=== PATIENT | female | born 1950 ===

== ENCOUNTER 2024-04-07 06:00 | Outpatient (CLI) | payer OTHER ==
[~2024-04-07] VITALS: Ht 154.9 cm; Wt 63.5 kg
[2024-04-07 10:02] LABS: HEMOGLOBIN 13.1 g/dL (12.0-15.00); MEAN CELL VOLUME 93.4 fL (80.00-100.00); MEAN CORPUSCULAR HEMOGLOBIN 31.3 pg (27.00-32.0); MEAN CORPUSCULAR HGB CONC 33.5 g/dl (32.0-36.0); PLATELET COUNT 216 K/uL (150-450); RED BLOOD COUNT 4.18 M/uL (4.00-6.00); RED CELL DISTRIBUTION WIDTH 12.6 % (11.5-14.5)
[2024-04-07 10:06] LABS: URINE APPEARANCE Clear; URINE BILIRRUBIN Negative (NEGATIVE); URINE BLOOD Negative; URINE COLOR Yellow; URINE GLUCOSE Negative (NEGATIVE); URINE KETONE Negative (NEGATIVE); URINE LEUKOCYTE Negative; URINE NITRATE Negative; URINE PROTEIN Negative (NEGATIVE); URINE UROBILINOGEN 0.2 E.U./dl
[2024-04-07] MEDS ORDERED: RESTORIL30 M1 PO (10:07)
[2024-04-07] MEDS ORDERED: BUSPIRONE HCL7.5 MG (10:08)
[2024-04-07] MEDS ORDERED: NEURONTIN300 MG (10:08)
[2024-04-07] MEDS ORDERED: PROTONIX40 MG PO (10:08)
[2024-04-07 10:10] LABS: URINE BACTERIA 18.3 uL (0.0-1933); URINE EPITHELIAL CELLS 4.4 uL (0.0-38.8); URINE RBC 2.7 uL (0.0-20.8); URINE WBC 2.8 uL (0.0-23.2)
[2024-04-07 10:12] VITALS: BP 127/80
[2024-04-07 10:36] LABS: PARTIAL THROMBOPLASTIN TIME 27.6 SECONDS (22.0-34.0); PROTHROMBIN TIME 10.9 SECONDS (9.0-11.5)
[2024-04-07 10:51] LABS: ALBUMIN 4.1 gm/dL (3.4-5.0); BILIRUBIN TOTAL 0.78 mg/dL (0.3-1.2); CALCIUM 9.7 mg/dL (8.5-10.1); CREATININE SERUM 0.74 mg/dL (0.55-1.02); GFR 77.14; GLOBULINA 2.8 G/DL (2.4-3.5); POTASSIUM 4.5 mEq/L (3.5-5.1); TOTAL PROTEIN 6.9 gm/dL (6.4-8.2)
[2024-04-07 11:22] LABS: URINE CAST 0.29 uL (0.0-1.40)
== END 2024-04-07 06:01 | disposition home or self-care (01) ==
LOC: RAD 06:00 → ADM 08:45 → EDSTATUS 04-15 08:45 → CIR.AMB 04-15 08:45
PROVIDERS: ATTEND Colon & Rectal Surgery
DX: R14.1 Gas pain (principal); R15.2 Fecal urgency; R15.9 Full incontinence of feces

== ENCOUNTER 2024-08-12 05:16 | Day surgery (SDC) | payer OTHER ==
[2024-08-04 10:33] VITALS: BP 117/73
[2024-08-04 10:50] LABS: BASO % 0.6 % (0.1-1.2); EOS # 0.04 (0.04-0.54); EOS % 0.6 % (0.7-7.0); HEMATOCRIT 39.9 % (34.1-44.9); LYMPH # 2.67 (1.18-3.74); MEAN CORPUSCULAR HEMOGLOBIN 30.7 pg (25.6-32.2); MONO # 0.74 (0.24-0.82); MONO % 10.5 % (4.7-12.5); NEUT # 3.51 (1.56-6.13); PLATELET COUNT 239 K/uL (163-369); RED BLOOD COUNT 4.24 M/uL (3.93-5.22)
[2024-08-04 11:10] LABS: URINE APPEARANCE Clear; URINE BILIRRUBIN Negative (NEGATIVE); URINE BLOOD Negative; URINE COLOR Yellow; URINE GLUCOSE Negative (NEGATIVE); URINE KETONE Negative (NEGATIVE); URINE LEUKOCYTE Negative; URINE NITRATE Negative; URINE PROTEIN Negative (NEGATIVE); URINE UROBILINOGEN 0.2 E.U./dl
[2024-08-04 11:12] LABS: URINE BACTERIA 78.3 uL (0.0-1933); URINE EPITHELIAL CELLS 4.5 uL (0.0-38.8); URINE WBC 4.4 uL (0.0-23.2)
[2024-08-04 11:12] LABS: INR 1.02; PROTHROMBIN TIME 11.1 SECONDS (9.0-11.5)
[2024-08-04 11:27] LABS: URINE CAST 0.58 uL (0.0-1.40); URINE RBC 1.4 uL (0.0-20.8)
[2024-08-04 11:56] LABS: ALBUMIN 4.2 gm/dL (3.4-5.0); BILIRUBIN TOTAL 0.66 mg/dL (0.3-1.2); CALCIUM 9.4 mg/dL (8.5-10.1); CREATININE SERUM 0.83 mg/dL (0.55-1.02); GFR 67.57; POTASSIUM 4.69 mEq/L (3.5-5.1); TOTAL PROTEIN 7.2 gm/dL (6.4-8.2)
[~2024-08-12] VITALS: Ht 152.4 cm; Wt 71.2 kg
[~2024-08-12 05:16] MED LIST: BUSPIRONE HCL7.5 MG; LEXAPRO5 MG PO; NEURONTIN300 MG; PROTONIX40 MG PO; RESTORIL30 M1 PO; WELLBUTRIN SR150 MG PO
[2024-08-12] MEDS ORDERED: LIDOCAINE HCL 1%/EPINEPHRINE 20ML VIAL IJ ONE ×2 (06:20→08:08)
[2024-08-12] MEDS ORDERED: BUPIVACAINE HCL/MPF 0.5% 30ML VIAL ONE ×2 (06:20→08:08)
[2024-08-12] MEDS ORDERED: CEFAZOLIN SODIUM 1,000 MG VIAL ONE (06:21)
[2024-08-12] MEDS ORDERED: POVIDONE-IODINE 118 ML BOTT TOP ONE (07:22)
== END 2024-08-12 10:27 | disposition home or self-care (01) ==
LOC: CIR.AMB 05:16
PROVIDERS: ATTEND Colon & Rectal Surgery
DX: R15.9 Full incontinence of feces (principal); R32 Unspecified urinary incontinence; Z88.8 Allergy status to other drugs, medicaments and biological substances
CPT/HCPCS: 64581; 95972; C1778

== ENCOUNTER 2024-08-26 05:16 | Day surgery (SDC) | payer OTHER ==
[2024-08-26] MEDS ORDERED: CEFAZOLIN SODIUM 1,000 MG VIAL ONE (07:06)
[2024-08-26] MEDS ORDERED: BUPIVACAINE HCL/MPF 0.5% 30ML VIAL ONE (07:22)
[2024-08-26] MEDS ORDERED: LIDOCAINE HCL 1%/EPINEPHRINE 20ML VIAL IJ ONE (07:22)
== END 2024-08-26 12:30 | disposition home or self-care (01) ==
LOC: CIR.AMB 05:16
PROVIDERS: ATTEND Colon & Rectal Surgery
DX: R15.9 Full incontinence of feces (principal); R15.2 Fecal urgency; Z88.8 Allergy status to other drugs, medicaments and biological substances
CPT/HCPCS: 64590; 95972; C1767